=== PATIENT | male | born 1970 | race Caucasian/White ===

== ENCOUNTER → 2020-04-29 | Outpatient (CLI) | payer OTHER ==
[~2020-04-29] MED LIST: PROHANCE 279.3MG/ML 15ML VIAL As Ordered ONE; PROHANCE 279.3MG/ML 5ML VIAL As Ordered ONE
--- NOTE | 2020-04-29 23:01 | REP ---
MRI ABDOMEN WITH AND WITHOUT CONTRAST: HISTORY: Complex left renal cyst. COMPARISON: Ultrasound [facility] 03/03/2020. TECHNIQUE: Multiple sequences obtained of the abdomen, centered on the kidneys, prior to and following the intravenous administration of 17 mL ProHance. The right kidney appears normal. The left kidney demonstrates an exophytic cyst of the lower pole, which measures 3.5 cm in diameter. On the precontrast images, there is a fluid-fluid level. There is no internal enhancement. The findings are compatible with a benign hemorrhage or proteinaceous cyst. No enhancing nodule is seen internally. There is no hydronephrosis bilaterally. A subcentimeter nonenhancing cyst is seen in the mid left kidney just superior to the exophytic cyst. Multiple subcentimeter cysts are seen in the visualized liver. The spleen is normal in size with no intrinsic abnormality identified. The adrenal glands appear normal. No pancreatic mass is seen. No adenopathy or free fluid is seen. There is evidence of diffuse dissection of the abdominal aorta from the level of the diaphragmatic hiatus down to the aortic bifurcation. Maximum AP diameter of the abdominal aorta is proximally and measures 2.9 cm in maximum AP dimension. Gallbladder is collapsed and contains a gallstone, which measures 2.5 cm in maximum diameter. IMPRESSION: Benign mildly complex left renal cyst containing hemorrhagic or proteinaceous fluid. The cyst measures 3.5 cm in diameter and is in the lower pole of the left kidney. There is another benign nonenhancing subcentimeter cyst in the mid left kidney. There are findings consistent with aortic dissection diffusely of the abdominal aorta from the diaphragmatic hiatus to the aortic bifurcation. I relayed this finding to Dr. Jaswinder Castillo, who is covering for the [facility], who is caring for this patient. A notification was made at 5:30 p.m. 04/29/2020. Electronically Signed by Govind Velez MD 05/04/2020 06:18 P
== END ==
LOC: M RAD 10:48
PROVIDERS: ATTEND Family Medicine
DX: N28.1 Cyst of kidney, acquired (principal); K80.20 Calculus of gallbladder without cholecystitis without obstruction
CPT/HCPCS: 74183; A9576

== ENCOUNTER → 2021-05-25 | Outpatient (REF) | payer OTHER ==
[2021-05-25 12:23] LABS: HEMOGLOBIN A1c 5.5 %
== END ==
LOC: M SFHCCLAY 08:00
PROVIDERS: ATTEND Family Medicine
DX: Z00.00 Encounter for general adult medical examination without abnormal findings (principal); Z13.1 Encounter for screening for diabetes mellitus; Z80.42 Family history of malignant neoplasm of prostate; Z12.5 Encounter for screening for malignant neoplasm of prostate

== ENCOUNTER → 2021-06-17 | Outpatient (CLI) | payer OTHER ==
[~2021-06-17] MED LIST changes: -PROHANCE 279.3MG/ML 15ML VIAL As Ordered ONE; +PROHANCE 279.3MG/ML 15ML VIAL ONE; -PROHANCE 279.3MG/ML 5ML VIAL As Ordered ONE; +PROHANCE 279.3MG/ML 5ML VIAL ONE
== END ==
LOC: M PLAIMG 14:04
PROVIDERS: ATTEND Family Medicine
DX: N28.1 Cyst of kidney, acquired (principal); K76.89 Other specified diseases of liver; I71.02 Dissection of abdominal aorta
CPT/HCPCS: 74183; A9576

== ENCOUNTER → 2022-05-25 | Outpatient (REF) | payer OTHER | LOC: M SFHCCLAY 08:04 | PROVIDERS: ATTEND Family Medicine | DX: Z12.5 Encounter for screening for malignant neoplasm of prostate (principal); Z80.42 Family history of malignant neoplasm of prostate ==